=== PATIENT | male | born 1970 | race Caucasian/White ===

== ENCOUNTER 2022-10-10 11:01 | Emergency (ER) | payer SELFPAY ==
--- OUTSIDE RECORDS SUMMARY | 2022-10-10 11:04 | XMS REPORT | Continuity of Care Document ---
:[address] [facility] Address [address] [place] [address] [address] [place] [address] Care Team Providers Name Role Phone Colton Mcmahan DO Attending Clinician COLTON MCMAHAN Attending Clinician Unavailable Problems This patient has no known problems. Allergies, Adverse Reactions, Alerts Allergy Allergy Status Severity Reaction(s) Onset Inactive Treating Comm ents Source Name Type Date Date Clinician NO KNOWN Drug Active Univers ALLERGIE Class ity of S [facility] Social History Social Habit Start Date Stop Date Quantity Comments Source Exposure to Not sure [facility] SARS-CoV-2 (event) Medica l Branch Sex Assigned At [birth year] [facility] 00:00:00 00:00:00 Medical Branch Smoking Status Start Date Stop Date Source Unknown if ever smoked [facility] Medications Ordered Filled Start Stop Current Ordering Indication Dosage Frequency Signature Comments Components Source Medication Medication Date Date Medication? Clinician (SIG) Name Name naproxen Yes [id number] 550mg Take 1 Un amari sodium -26 tablet by ity of (ANAPROX 00:00: mouth 2 [place] DS) 550 mg 00 (two) Medical tablet times [place] daily with meals. methylPREDN Yes [id number] Take by Univers ISolone - mouth ity of (MEDROL, 00:00: SEE-INSTRU [place] as MICHAEL,) 4 mg 00 CTIONS. Medica l tablets follow Branch package directions methocarbam 2020- No [id number] 500mg Take 1 Univers oL 500 mg 02-25 tablet by ity of tablet 00:00: 04:59 mouth 3 [place] 00 :00 (three) Medical times Branch daily for 5 days. Vital Signs Vital Name Observation Time Observation Value Comments Source Systolic blood 2021-02-25 138 mm[Hg] University of pressure 16:37:00 [facility] Diastolic blood 2021-02-25 92 mm[Hg] University o f pressure 16:37:00 [facility] Heart rate 2021-02-25 85 /min [facility] 16:37:00 [facility] Body temperature 2021-02-25 36.44 Guillermina [facility] 16:37:00 [facility] Respiratory rate 2021-02-25 18 /min [facility] 16:37:00 [facility] Body weight 2021-02-25 86.183 kg Simultaneous [facility] 16:37:00 filing. User may [place] [facility] not have seen [place] previous data. Oxygen saturation 2021-02-25 97 /min [facility] in Arterial blood 16:37:00 [facility] by Pulse oximetry [place] Procedures Procedure Date / Time Performed Performing Clinician Sourc e XR FOOT <3 VW LEFT 2021-02-25 18:06:41 Colton Mcmahan y [facility] XR ANKLE <3 VW LEFT 2021-02-25 16:57:33 Colton Mcmahan ty [facility] Encounters Start End Encounter Admission Attending Care Care Encounter Source Date/Time Date/Time Type Type Clinicians Facility Department ID 2021-02-25 2021-02-25 Emergency ALBARO Mcmahan [id number] Univers 11:39:00 13:46:00 Colton Argueta [id number] i [facility] [id number] [facility] [id number] [facility] 084 Branch 2021-02-25 2021-02-25 Emergency X ALBARO MCMAHAN ERT [id number] Univers 11:39:00 11:39:00 COLTON rodriguez [facility] Results Test Description Test Time Test Comments Results Result Sour e Comments XR FOOT <3 VW 2021-02-01 HISTORY: ?Pain. Univer sity of LEFT [address] [facility] 18:13:57 avulsion. FINDINGS: Branc h AP, lateral, oblique views of left foot showed small corticalfracture along the lateral surface of calcaneum, visible only in AP view.No other acute fracture or dislocation detected. CONCLUSIONS: Minimally cortical fracture along the lateralsurface of calcaneum close to calcaneocuboid joint. [facility], Radiant Results [facility] User - 02/25/2021 1:15 PM CDT HISTORY: Pain. Possible [place] avulsion.FINDINGS: AP, lateral, oblique views of left foot showed small corticalfracture along the lateral surface of calcaneum, visible only in AP view.No other acute fracture or dislocation detected.CONCLUSIONS: Minimally cortical fracture along the lateralsurface of calcaneum close to calcaneocuboid joint. XR ANKLE <3 VW 2021-02-01 Questionable lateral University of LEFT 6 tarsal avulsion which [place] as Medical 17:01:07 may be further Branch characterizedwith foot radiographs with no other osseous abnormality. Posttraumatic soft tissue swelling. EXAM: XR ANKLE <3 VW LEFT HISTORY: pain with WB COMPARISON: None FINDINGS: Imaging of the ankle demonstrates maintenance of alignment. Joint spacesare preserved. Swelling surrounds the anterior and lateral ankle jointline. A Stieda process is present. Mild cortical irregularity is seen overthe lateral tarsal bones on the standard AP projection of the ankle only. [facility], Radiant Results [facility] User - 02/25/2021 12:02 PM CDT EXAM:XR ANKLE <3 VW LEFTHISTORY:pain with WB COMPARISON:NoneFINDIN GS: Imaging of the ankle demonstrates maintenance of alignment. Joint spacesare preserved. Swelling surrounds the anterior and lateral ankle jointline. A Stieda process is present. Mild cortical irregularity is seen overthe lateral tarsal bones on the standard AP projection of the ankle only.IMPRESSIONQuesti onable lateral tarsal avulsion which may be further characterizedwith foot radiographs with no other osseous abnormality.Posttraum atic soft tissue swelling.
[2022-10-10 13:15] LABS: SARS-COV-2 RT PCR NEGATIVE (NEGATIVE)
--- NOTE | 2022-10-10 13:18 | EDPHYS ---
Physician Documentation [facility] Name: Madi Kelly Age: 52 yrs Sex: Male : 1970 Arrival Date: 10/10/2022 Time: 11:04 Bed 12 Private MD: ED Physician Rm Flores HPI: 10/10 11:30 This 52 yrs old Male presents to ER via Ambulatory with complaints of Flu Symptoms. jmm 11:30 The patient or guardian reports cough. Onset: The symptoms/episode began/occurred jmm gradually, 2 week(s) ago. Modifying factors: The symptoms are alleviated by nothing. the symptoms are aggravated by nothing. Associated signs and symptoms: Pertinent positives: sore throat. The patient has experienced similar episodes in the past. Historical: - Allergies: 11:10 Naproxen Sodium; hb - Home Meds: 11:10 None [Active]; hb - PMHx: 11:10 None; hb - PSHx: 11:10 Tonsillectomy; hb - Immunization history:: Adult Immunizations up to date. - Social history:: Smoking status: Patient reports the use of cigarette tobacco products, smokes one pack cigarettes per day. ROS: 11:30 Constitutional: Negative for fever, chills, and weight loss, Cardiovascular: Negative jmm for chest pain, palpitations, and edema. 11:30 ENT: Positive for sinus congestion, sore throat. 11:30 Respiratory: Positive for cough. 11:30 All other systems are negative. Exam: 11:30 Constitutional: This is a well developed, well nourished patient who is awake, alert, jmm and in no acute distress. Head/Face: atraumatic. Eyes: EOMI, no conjunctival erythema appreciated ENT: Moist Mucus Membranes Neck: Trachea midline, Supple Chest/axilla: Normal chest wall appearance and motion. Cardiovascular: Regular rate and rhythm. No edema appreciated Respiratory: Normal respirations, no respiratory distress appreciated Abdomen/GI: Non distended Back: Normal ROM Skin: General appearance color normal MS/ Extremity: Moves all extremities, no obvious deformities appreciated, no edema noted to the lower extremities Neuro: Awake and alert Psych: Behavior is normal, Mood is normal, Patient is cooperative and pleasant Vital Signs: 11:09 BP 135 / 90; Pulse 83; Resp 16; Temp 98.9; Pulse Ox 100% on R/A; Weight 79.38 kg; hb Height 5 ft. 10 in. (177.80 cm); Pain 5/10; 11:09 Body Mass Index 25.11 (79.38 kg, 177.80 cm) hb MDM: 11:36 Patient medically screened. [facility] 13:17 Data reviewed: vital signs, nurses notes. Counseling: I had a detailed discussion with [facility] the patient and/or guardian regarding: the historical points, exam findings, and any diagnostic results supporting the discharge/admit diagnosis, lab results, the need for outpatient follow up, to return to the emergency department if symptoms worsen or persist or if there are any questions or concerns that arise at home. 10/10 11:29 Order name: COVID-19/FLU A+B; Complete Time: 13:17 [facility] 10/10 11:29 Order name: Strep; Complete Time: 12:57 [facility] 10/10 12:58 Order name: Throat Culture EDMS Administered Medications: No medications were administered Disposition: 15:11 Co-signature as Attending Physician, Rm Flores MD. rn Disposition Summary: 10/10/22 13:18 Discharge Ordered Location: Home [facility] Condition: Stable [facility] Diagnosis - Cough m - Acute pharyngitis, unspecified [facility] Followup: [facility] - With: Private Physician - When: 2 - 3 days - Reason: Recheck today's complaints, Continuance of care, Re-evaluation by your physician Discharge Instructions: - Discharge Summary Sheet [facility] - Pharyngitis jm - Cough, Adult [facility] Forms: - Medication Reconciliation Form [facility] - Thank You Letter [facility] - Antibiotic Education [facility] - Prescription Opioid Use [facility] Prescriptions: - cefdinir 300 mg Oral capsule - take 1 capsule by ORAL route every 12 hours for 10 days; 20 capsule; Refills: [facility] 0, Product Selection Permitted Signatures: Dispatcher [employer] EDMS Chester Schwarz PA PA jmm Nieto, Roman, MD MD rn Baxter, Heather, RN RN hb Corrections: (The following items were deleted from the chart) 11:11 11:10 Allergies: No Known Allergies; hb hb
--- NOTE | 2022-10-10 13:18 | ER ---
Nurse's Notes [facility] Name: Madi Kelly Age: 52 yrs Sex: Male : 1970 Arrival Date: 10/10/2022 Time: 11:04 Bed 12 Private MD: Diagnosis: Cough;Acute pharyngitis, unspecified Presentation: 10/10 11:09 Chief complaint: Body aches, sore throat, malaise, and decreased appetite x 2 weeks. hb Coronavirus screen: Client presents with at least one sign or symptom that may indicate coronavirus-19. Standard/surgical mask placed on the client. Provider contacted for isolation considerations. Ebola Screen: No symptoms or risks identified at this time. Initial Sepsis Screen: Does the patient meet any 2 criteria? No. Patient's initial sepsis screen is negative. Does the patient have a suspected source of infection? No. Patient's initial sepsis screen is negative. Risk Assessment: Do you want to hurt yourself or someone else? Patient reports no desire to harm self or others. Onset of symptoms was September 2023. 11:09 Method Of Arrival: Ambulatory hb 11:09 Acuity: BERNIE 4 hb Triage Assessment: 11:10 General: Appears in no apparent distress. Behavior is calm, cooperative. Pain: Pain hb currently is 5 out of 10 on a pain scale. Neuro: Level of Consciousness is awake, alert, obeys commands, Oriented to person, place, time, situation. Cardiovascular: Patient's skin is warm and dry. Respiratory: Respiratory effort is even, unlabored, Respiratory pattern is regular, symmetrical. Historical: - Allergies: 11:10 Naproxen Sodium; hb - Home Meds: 11:10 None [Active]; hb - PMHx: 11:10 None; hb - PSHx: 11:10 Tonsillectomy; hb - Immunization history:: Adult Immunizations up to date. - Social history:: Smoking status: Patient reports the use of cigarette tobacco products, smokes one pack cigarettes per day. Screenin:30 [facility] ED Fall Risk Assessment (Adult) Score/Fall Risk Level 0 - 2 = Low Risk hb Oriented to surroundings, Maintained a safe environment. Abuse screen: Denies threats or abuse. Denies injuries from another. Nutritional screening: No deficits noted. Tuberculosis screening: No symptoms or risk factors identified. Assessment: 11:15 General: See triage assessment. hb 13:27 Reassessment: Patient appears in no apparent distress at this time. Patient and/or hb family updated on plan of care and expected duration. Pain level reassessed. Patient is alert, oriented x 3, equal unlabored respirations, skin warm/dry/pink. Vital Signs: 11:09 BP 135 / 90; Pulse 83; Resp 16; Temp 98.9; Pulse Ox 100% on R/A; Weight 79.38 kg; hb Height 5 ft. 10 in. (177.80 cm); Pain 5/10; 11:09 Body Mass Index 25.11 (79.38 kg, 177.80 cm) hb ED Course: 11:04 Patient arrived in ED. am2 11:08 Chester Schwarz PA is PHCP. [facility] 11:08 Rm Flores MD is Attending Physician. [facility] 11:10 Triage completed. hb 11:10 Arm band placed on. hb 11:30 Patient has correct armband on for positive identification. hb 11:38 COVID swab sent to lab. Flu and/or RSV swab sent to lab. Strep swab sent to lab. tm3 13:28 No provider procedures requiring assistance completed. Patient did not have IV access hb during this emergency room visit. Administered Medications: No medications were administered Medication: 13:27 VIS not applicable for this client. hb Outcome: 13:18 Discharge ordered by . [facility] 13:28 Discharged to home ambulatory. hb 13:28 Condition: stable 13:28 Discharge instructions given to patient, Instructed on discharge instructions, follow up and referral plans. medication usage, Demonstrated understanding of instructions, follow-up care, medications, Prescriptions given X 1. 13:28 Patient left the ED. hb Signatures: Fredy Daniel tm3 Chester Schwarz PA PA jmm Baxter, Heather, RN RN hb Carola Joseph am2 Corrections: (The following items were deleted from the chart) 11:11 11:10 Allergies: No Known Allergies; hb hb
[2022-10-10 13:33] VITALS: BP 135/90; TEMP 98.9; O2SAT 100
== END 2022-10-10 13:28 | disposition home or self-care (01) ==
LOC: ER 11:01
DX: R05.9 Cough, unspecified (principal); J02.9 Acute pharyngitis, unspecified; F17.210 Nicotine dependence, cigarettes, uncomplicated; Z20.822 Contact with and (suspected) exposure to COVID-19; Z88.5 Allergy status to narcotic agent
CPT/HCPCS: 0240U; 87070; 87081; 99283

== ENCOUNTER 2023-01-28 10:56 | Emergency (ER) | payer SELFPAY ==
--- OUTSIDE RECORDS SUMMARY | 2023-01-28 11:03 | XMS REPORT | Continuity of Care Document ---
:1970 Author Organization [facility] t Address [address] [facility]. [address] [place] [address] Care Team Providers Name Role Phone Colton Mcmahan DO Attending Clinician COLTON MCMAHAN Attending Clinician Unavailable Problems This patient has no known problems. Allergies, Adverse Reactions, Alerts Allergy Allergy Status Severity Reaction(s) Onset Inactive Treating Comm ents Source Name Type Date Date Clinician NO KNOWN Drug Active Univers ALLERGIE Class ity of S [facility] Social History Social Habit Start Date Stop Date Quantity Comments Source Exposure to Not sure [facility] SARS-CoV-2 (event) Medica l Branch Sex Assigned At [birth year] [facility] 00:00:00 00:00:00 Medical [place] Smoking Status Start Date Stop Date Source Unknown if ever smoked [facility] Medications Ordered Filled Start Stop Current Ordering Indication Dosage Frequency Signature Comments Components Source Medication Medication Date Date Medication? Clinician (SIG) Name Name naproxen Yes [id number] 550mg Take 1 Un amari sodium 5-26 tablet by ity of (ANAPROX 00:00: mouth 2 [place] DS) 550 mg 00 (two) Medical tablet times Branch daily with meals. methylPREDN Yes [id number] Take by Univers ISolone 5-26 mouth ity of (MEDROL, 00:00: SEE-INSTRU [place] as MICHAEL,) 4 mg 00 CTIONS. Medica l tablets follow Branch package directions methocarbam 2020- No [id number] 500mg Take 1 Univers oL 500 mg 5-26 06-01 tablet by ity of tablet 00:00: 04:59 mouth 3 [place] 00 :00 (three) Medical times Branch daily for 5 days. Vital Signs Vital Name Observation Time Observation Value Comments Source Systolic blood 2021-02-25 138 mm[Hg] [place] of pressure 16:37:00 [facility] Diastolic blood 2021-02-25 92 mm[Hg] University o f pressure 16:37:00 [facility] Heart rate 2021-02-25 85 /min [facility] 16:37:00 [facility] Body temperature 2021-02-25 36.44 Guillermina [facility] 16:37:00 [facility] Respiratory rate 2021-02-25 18 /min [facility] 16:37:00 [facility] Body weight 2021-02-25 86.183 kg Simultaneous [facility] 16:37:00 filing. User may [place] [facility] not have seen [place] previous data. Oxygen saturation 2021-02-25 97 /min [facility] in Arterial blood 16:37:00 [facility] by Pulse oximetry [place] Procedures Procedure Date / Time Performed Performing Clinician Sour e XR FOOT <3 VW LEFT 2021-02-25 18:06:41 Colton Mcmahan y [facility] XR ANKLE <3 VW LEFT 2021-02-25 16:57:33 Colton Mcmahan [facility] Encounters Start End Encounter Admission Attending Care Care Encounter Source Date/Time Date/Time Type Type Clinicians Facility Department ID 2021-02-25 2021-02-25 Emergency ALBARO Mcmahan [id number] [facility] 11:39:00 13:46:00 Colton Argueta [id number] i [facility] [id number] [facility] [id number] [facility] 084 Branch 2021-02-25 2021-02-25 Emergency X ALBARO MCMAHAN ERT [id number] Univers 11:39:00 11:39:00 COLTON rodriguez [facility] Results Test Description Test Time Test Comments Results Result Sour e Comments XR FOOT <3 VW 2021-02-01 HISTORY: ?Pain. Univer sity of LEFT 6 Possible talus [facility] 18:13:57 avulsion. FINDINGS: Bran h AP, lateral, oblique views of left foot showed small corticalfracture along the lateral surface of calcaneum, visible only in AP view.No other acute fracture or dislocation detected. CONCLUSIONS: Minimally cortical fracture along the lateralsurface of calcaneum close to calcaneocuboid joint. [facility], Rad[facility] User - 02/25/2021 1:15 PM CDT HISTORY: [...] standard AP projection of the ankle only. [facility], Radiant Results [facility] User - 02/25/2021 12:02 PM CDT EXAM:XR [...]
[2023-01-28] MEDS ORDERED: ASPIRIN 81 MG CHEWABLE TABLET ONE (11:25)
[2023-01-28 11:51] LABS: Protime INR 0.94
[2023-01-28] MEDS ORDERED: MORPHINE 2 MG/ML SYR ONE (11:51)
[2023-01-28 12:09] LABS: Albumin 3.7 g/dL (3.4-5.0); Bilirubin Direct 0.1 mg/dL (0-0.2); Bilirubin Total 0.3 mg/dL (0.2-1.0); Magnesium 2.1 mg/dL (1.6-2.4); Potassium 3.9 mEq/L (3.5-5.1); Troponin High Sensitivity 3.5 pg/mL (<58.9)
[2023-01-28 12:30] LABS: Absolute Lymphocytes (CBC) 2.3 K/uL (0.7-4.9); Hematocrit 38.6 % (39.6-49.0); Lymphocytes % 27.9 % (15.3-44.8); MCV 92.4 fL (80-100); MPV 8.5 fL (7.6-11.3); RBC Red Blood Cell Count 4.17 M/uL (4.33-5.43)
[2023-01-28] MEDS ORDERED: MORPHINE 4 MG/ML SYR ONE (12:30)
[2023-01-28 12:47] LABS: Troponin High Sensitivity 3.4 pg/mL (<58.9)
--- NOTE | 2023-01-28 14:21 | RAD REPORT ---
EXAM DESCRIPTION: CT - Chest For Pe Angio - 01/28/2023 1:58 pm CLINICAL HISTORY: Chest pain COMPARISON: None. TECHNIQUE: Dynamically enhanced axial 3 mm thick images of the chest were obtained during administra tion of 100 mL Isovue 370 IV contrast. Coronal and oblique reconstruction images were generated and r eviewed. Exam utilizes a protocol for optimal evaluation of pulmonary arterial tree. Maximum intensity projections 3D imaging was utilized All CT scans are performed using dose optimization technique as appropriate and may include automated exposure control or mA/KV adjustment according to patient size. FINDINGS: A pulmonary embolus is not seen. A thoracic aortic aneurysm is not noted. A pleural effusion is not seen. A pericardial effusion is not seen. Mild to moderate paraseptal emphysema. Multiple hepatic lesions. Almost all are too small to characterize. They vary in size from a few mill imeters to 14 millimeters. IMPRESSION: Negative for a pulmonary embolism. Mild to moderate COPD Hepatic lesions. Ultrasound recommended
--- NOTE | 2023-01-28 15:24 | EDPHYS ---
Physician Documentation [facility] Name: Madi Kelly Age: 52 yrs Sex: Male : 1970 Arrival Date: 01/28/2023 Time: 10:56 Bed 14 Private MD: ED Physician Darnell Ahn HPI: 01/28 11:13 This 52 yrs old Male presents to ER via Ambulatory with complaints of Chest Pain, Back snw Pain. 11:13 The patient or guardian reports chest pain that is located primarily in the anterior snw chest wall, left. Onset: suddenly, just prior to arrival, and became persistent. The pain radiates to left back. The chest pain is described as a pressure. Duration: The patient or guardian reports a single episode. Severity of pain: At its worst the pain was moderate. The patient has not experienced similar symptoms in the past. The patient has not recently seen a physician, and does not have an established primary care provider. smokes 1 PPD. Historical: - Allergies: 11:08 Naproxen Sodium; ld1 - PMHx: 11:08 None; ld1 - PSHx: 11:08 Tonsillectomy; ld1 - Immunization history:: Adult Immunizations up to date, Client reports receiving the 2nd dose of the Covid vaccine. - Social history:: Smoking status: Patient denies any tobacco usage or history of. Patient/guardian denies using alcohol. ROS: 11:12 Constitutional: Negative for fever, chills, and weight loss, Eyes: Negative for injury, snw pain, redness, and discharge, ENT: Negative for injury, pain, and discharge, Neck: Negative for injury, pain, and swelling. 11:12 Respiratory: Negative for shortness of breath, cough, wheezing, and pleuritic chest pain, Abdomen/GI: Negative for abdominal pain, nausea, vomiting, diarrhea, and constipation, Back: Negative for injury and pain, : Negative for injury, bleeding, discharge, and swelling, MS/Extremity: Negative for injury and deformity, Skin: Negative for injury, rash, and discoloration. 11:12 Psych: Negative for depression, anxiety, suicide ideation, homicidal ideation, and hallucinations. 11:12 Cardiovascular: Positive for chest pain, of the left clavicle, anterior aspect of left upper chest and left lateral posterior chest. 11:12 Neuro: Positive for lightheadedness. Exam: 11:11 Constitutional: This is a well developed, well nourished patient who is awake, alert, snw and in no acute distress. Head/Face: Normocephalic, atraumatic. Eyes: Pupils equal round and reactive to light, extra-ocular motions intact. Lids and lashes normal. Conjunctiva and sclera are non-icteric and not injected. Cornea within normal limits. Periorbital areas with no swelling, redness, or edema. ENT: Nares patent. No nasal discharge, no septal abnormalities noted. Tympanic membranes are normal and external auditory canals are clear. Oropharynx with no redness, swelling, or masses, exudates, or evidence of obstruction, uvula midline. Mucous membranes moist. Neck: Trachea midline, no thyromegaly or masses palpated, and no cervical lymphadenopathy. Supple, full range of motion without nuchal rigidity, or vertebral point tenderness. No Meningismus. Chest/axilla: Normal chest wall appearance and motion. Nontender with no deformity. No lesions are appreciated. Cardiovascular: Regular rate and rhythm with a normal S1 and S2. No gallops, murmurs, or rubs. Normal PMI, no JVD. No pulse deficits. Respiratory: Lungs have equal breath sounds bilaterally, clear to auscultation and percussion. No rales, rhonchi or wheezes noted. No increased work of breathing, no retractions or nasal flaring. Abdomen/GI: Soft, non-tender, with normal bowel sounds. No distension or tympany. No guarding or rebound. No evidence of tenderness throughout. Back: No spinal tenderness. No costovertebral tenderness. Full range of motion. Skin: Warm, dry with normal turgor. Normal color with no rashes, no lesions, and no evidence of cellulitis. MS/ Extremity: Pulses equal, no cyanosis. Neurovascular intact. Full, normal range of motion. Neuro: Awake and alert, GCS 15, oriented to person, place, time, and situation. Cranial nerves II-XII grossly intact. Motor strength 5/5 in all extremities. Sensory grossly intact. Cerebellar exam normal. Normal gait. 11:11 Psych: Behavior/mood is pleasant, cooperative, anxious, Oriented to person, place, only. Vital Signs: 11:07 BP 129 / 90; Pulse 85; Resp 20; Temp 99.7(O); Pulse Ox 98% on R/A; Weight 79.38 kg; ld1 Height 5 ft. 9 in. ; Pain 8/10; 12:00 BP 125 / 76; Pulse 77; Resp 18; Pulse Ox 97% on R/A; eh3 13:00 BP 130 / 71; Pulse 70; Resp 17; Pulse Ox 96% on R/A; eh3 14:00 BP 130 / 71; Pulse 69; Resp 17; Pulse Ox 97% on R/A; eh3 11:07 Body Mass Index 25.84 (79.38 kg, 175.26 cm) ld1 11:07 Pain Scale: Adult ld1 MDM: 11:22 Patient medically screened. snw 15:26 HEART Score: History: Slightly Suspicious (0), ECG: Non specific repolarization snw disturbance / LBTB / PM (1), Age: > 45 and < 65 years (1), Risk Factors: No Risk Factors Known (0), Troponin: < or = 1 x Normal Limit (0), Total Score = 2. The patient was given aspirin in the Emergency Department. Data reviewed: vital signs, nurses notes, lab test result(s), EKG, radiologic studies. I considered the following discharge prescriptions or medication management in the emergency department Medications were administered in the Emergency Department. See MAR. Care significantly affected by the following Social Determinants of Health: no PCP. Counseling: I had a detailed discussion with the patient and/or guardian regarding: the historical points, exam findings, and any diagnostic results supporting the discharge/admit diagnosis, lab results, radiology results, the need for outpatient follow up, for definitive care, to return to the emergency department if symptoms worsen or persist or if there are any questions or concerns that arise at home, smoking cessation. Special discussion: Based on the history and exam findings, there is no indication for further emergent testing or inpatient evaluation. I discussed with the patient/guardian the need to see the primary care provider for further evaluation of the symptoms. I discussed with the patient/guardian the need to see the industrial services worker for further evaluation of the symptoms. 01/28 11:10 Order name: Basic Metabolic Panel; Complete Time: 12:10 snw 01/28 11:10 Order name: CBC with Diff; Complete Time: 12:53 snw 01/28 11:10 Order name: LFT's; Complete Time: 12:10 snw 01/28 11:10 Order name: Magnesium; Complete Time: 12:10 w 01/28 11:10 Order name: NT PRO-BNP; Complete Time: 12:10 w 01/28 11:10 Order name: PT-INR; Complete Time: 11:55 snw 01/28 11:10 Order name: Troponin HS; Complete Time: 12:10 snw 01/28 12:10 Order name: Troponin High Sensitivity; Complete Time: 12:53 w 01/28 12:10 Order name: CPK; Complete Time: 12:53 w 01/28 13:45 Order name: CT Chest For PE Angio; Complete Time: 14:32 snw 01/28 14:35 Order name: US Liver Only 01/28 12:10 Order name: EKG; Complete Time: 12:10 w 01/28 11:05 Order name: Cardiac monitoring; Complete Time: 11:18 cm9 01/28 11:05 Order name: EKG - Nurse/Tech; Complete Time: 11:18 cm9 01/28 11:05 Order name: IV Saline Lock; Complete Time: 11:55 cm9 01/28 11:05 Order name: Labs collected and sent; Complete Time: 11:36 cm9 01/28 11:05 Order name: O2 Per Protocol; Complete Time: 11:18 cm9 01/28 11:05 Order name: O2 Sat Monitoring; Complete Time: 11:18 cm9 01/28 11:56 Order name: Labs - recollect needed: recollect green and purple hemolyzed; Complete eb Time: 12:23 01/28 12:10 Order name: EKG - Nurse/Tech; Complete Time: 12:23 snw EC:15 Rate is 75 beats/min. Rhythm is regular. QRS [place] is Normal. UT interval is normal. QRS snw interval is normal. QT interval is normal. Clinical impression: NSR w/ Non-specific ST/T Changes. 12:30 Rate is 74 beats/min. Rhythm is regular. QRS [place] is Normal. UT interval is normal. QRS snw interval is normal. Clinical impression: NSR w/ Non-specific ST/T Changes. Administered Medications: 11:20 Drug: Aspirin PO Chewable Tablet 324 mg Route: PO; eh3 11:55 Follow up: Response: No adverse reaction 3 11:45 Drug: morphine IVP or IV 2 mg Route: IVP; Infused Over: 4 mins; Site: right upper arm; eh3 13:00 Follow up: Response: No adverse reaction 3 12:30 Drug: morphine IVP or IV 4 mg Route: IVP; Infused Over: 4 mins; Site: right upper arm; eh3 14:00 Follow up: Response: No adverse reaction 3 15:25 Drug: Ketorolac IVP 15 mg Route: IVP; Site: right upper arm; eh3 15:30 Follow up: Response: Medication administered at discharge. 3 Disposition: 12:09 Co-signature as Attending Physician, Darnell Ahn DO I was immediately available on-site ms3 in the Emergency Department for consultation in the care of the patient. Disposition Summary: 01/28/23 15:24 Discharge Ordered Location: Home snw Condition: Stable snw Diagnosis - Costochondritis snw Followup: snw - With: Emergency Department - When: As needed - Reason: Worsening of condition Followup: snw - With: Private Physician - When: 2 - 3 days - Reason: Recheck today's complaints, Continuance of care, Re-evaluation by your physician Discharge Instructions: - Discharge Summary Sheet snw - Chest Wall Pain snw - Costochondritis snw - Form - COPD Action Plan snw - COPD and Physical Activity snw Forms: - Medication Reconciliation Form snw - Thank You Letter snw - Antibiotic Education snw - Prescription Opioid Use snw Prescriptions: - Augmentin 875-125 mg Oral Tablet - take 1 tablet by ORAL route every 12 hours for 10 days; 20 tablet; Refills: 0, snw Product Selection Permitted - Prednisone 20 mg Oral Tablet - take 2 tablets by ORAL route once daily for 5 days; 10 tablet; Refills: 0, snw Product Selection Permitted - Pepcid 20 mg Oral Tablet - take 1 tablet by ORAL route once daily; 20 tablet; Refills: 0, Product snw Selection Permitted Signatures: Dispatcher [employer] Kaitlyn Hilario FNP-C FNP-Csnw Krysten Fernandes Marcus, DO DO ms3 Phyllis Ahn RN RN ld1 Ashley Keane RN RN eh3 Ayaan, Fabiola, RN RN cm9
--- NOTE | 2023-01-28 15:24 | ER ---
Nurse's Notes [facility] Name: Madi Kelly Age: 52 yrs Sex: Male : 1970 Arrival Date: 01/28/2023 Time: 10:56 Bed 14 Private MD: Diagnosis: Costochondritis Presentation: 01/28 11:07 Chief complaint: Patient states: Chest pain - lightheadedness, rash. Coronavirus ld1 screen: At this time, the client does not indicate any symptoms associated with coronavirus-19. Ebola Screen: No symptoms or risks identified at this time. Initial Sepsis Screen: Does the patient meet any 2 criteria? No. Patient's initial sepsis screen is negative. Does the patient have a suspected source of infection? No. Patient's initial sepsis screen is negative. Risk Assessment: Do you want to hurt yourself or someone else? Patient reports no desire to harm self or others. Onset of symptoms was January 28, 2023. 11:07 Method Of Arrival: Ambulatory ld1 11:07 Acuity: BERNIE 3 ld1 Triage Assessment: 11:08 General: Appears in no apparent distress. comfortable, Behavior is calm, cooperative, ld1 appropriate for age. Pain: Complains of pain in chest Pain does not radiate. Pain currently is 8 out of 10 on a pain scale. Quality of pain is described as throbbing. EENT: No signs and/or symptoms were reported regarding the EENT system. Neuro: Level of Consciousness is awake, alert, obeys commands, Oriented to person, place, time, situation. Cardiovascular: Reports chest pain, Capillary refill < 3 seconds Patient's skin is warm and dry. Respiratory: Airway is patent Respiratory effort is even, unlabored. GI: Abdomen is flat, non-distended. Historical: - Allergies: 11:08 Naproxen Sodium; ld1 - PMHx: 11:08 None; ld1 - PSHx: 11:08 Tonsillectomy; ld1 - Immunization history:: Adult Immunizations up to date, Client reports receiving the 2nd dose of the Covid vaccine. - Social history:: Smoking status: Patient denies any tobacco usage or history of. Patient/guardian denies using alcohol. Screenin:20 [facility] ED Fall Risk Assessment (Adult) Score/Fall Risk Level 0 - 2 = Low Risk. Abuse eh3 screen: Denies threats or abuse. Denies injuries from another. Nutritional screening: No deficits noted. Tuberculosis screening: No symptoms or risk factors identified. Assessment: 11:20 General: Appears in no apparent distress. uncomfortable, Behavior is calm, cooperative, eh3 appropriate for age. Pain: Complains of pain in anterior aspect of left upper chest Pain radiates to back and anterior aspect of left shoulder. Pain: Pain currently is 8 out of 10 on a pain scale. Quality of pain is described as sharp, Pain began 2 hours ago. Is continuous. Neuro: Level of Consciousness is awake, alert, obeys commands, Oriented to person, place, time, situation. Cardiovascular: Capillary refill < 3 seconds Patient's skin is warm and dry. Rhythm is sinus rhythm. Respiratory: Airway is patent Respiratory effort is even, unlabored, Respiratory pattern is regular, symmetrical. GI: Abdomen is round non-distended. : No signs and/or symptoms were reported regarding the genitourinary system. EENT: No signs and/or symptoms were reported regarding the EENT system. Derm: Skin is intact, is healthy with good turgor, Skin is pink, warm \T\ dry. Musculoskeletal: Circulation, motion, and sensation intact. 12:00 Reassessment: Patient appears in no apparent distress at this time. Patient and/or eh3 family updated on plan of care and expected duration. Pain level reassessed. Patient is alert, oriented x 3, equal unlabored respirations, skin warm/dry/pink. 13:00 Reassessment: Patient appears in no apparent distress at this time. Patient and/or eh3 family updated on plan of care and expected duration. Pain level reassessed. Patient is alert, oriented x 3, equal unlabored respirations, skin warm/dry/pink. 14:00 Reassessment: Patient appears in no apparent distress at this time. Patient and/or eh3 family updated on plan of care and expected duration. Pain level reassessed. Patient is alert, oriented x 3, equal unlabored respirations, skin warm/dry/pink. Vital Signs: 11:07 BP 129 / 90; Pulse 85; Resp 20; Temp 99.7(O); Pulse Ox 98% on R/A; Weight 79.38 kg; ld1 Height 5 ft. 9 in. ; Pain 8/10; 12:00 BP 125 / 76; Pulse 77; Resp 18; Pulse Ox 97% on R/A; eh3 13:00 BP 130 / 71; Pulse 70; Resp 17; Pulse Ox 96% on R/A; eh3 14:00 BP 130 / 71; Pulse 69; Resp 17; Pulse Ox 97% on R/A; eh3 11:07 Body Mass Index 25.84 (79.38 kg, 175.26 cm) ld1 11:07 Pain Scale: Adult ld1 ED Course: 11:00 Patient arrived in ED. ts1 11:01 [facility] Bell [facility]C [facility] snw 11:01 Darnell Ahn DO is Attending Physician. snw 11:08 Triage completed. ld1 11:08 Arm band placed on right wrist. ld1 11:18 Ashley Keane, RN is Primary Nurse. eh3 11:20 Patient has correct armband on for positive identification. Placed in gown. Bed in low eh3 position. Call light in reach. Side rails up X2. Client placed on continuous cardiac and pulse oximetry monitoring. NIBP monitoring applied. Door closed. Noise minimized. Warm blanket given. 11:20 Patient maintains SpO2 saturation greater than 95% on room air. eh3 11:35 Basic Metabolic Panel Sent. mm9 11:35 CBC with Diff Sent. mm9 11:35 LFT's Sent. mm9 11:35 Magnesium Sent. mm9 11:36 NT PRO-BNP Sent. mm9 11:36 PT-INR Sent. mm9 11:36 Troponin HS Sent. mm9 11:36 EKG done, by ED staff, reviewed by Kaitlyn JAMES. Missed attempt(s): 20 gauge in mm9 right forearm. 11:45 Inserted saline lock: 20 gauge in right upper arm, using aseptic technique. eh3 14:00 CT Chest For PE Angio In Process Unspecified. EDMS 15:00 US Liver Only In Process Unspecified. EDMS 15:50 No provider procedures requiring assistance completed. mb9 15:50 IV discontinued, intact, bleeding controlled, No redness/swelling at site. Pressure mb9 dressing applied. Administered Medications: 11:20 Drug: Aspirin PO Chewable Tablet 324 mg Route: PO; eh3 11:55 Follow up: Response: No adverse reaction eh3 11:45 Drug: morphine IVP or IV 2 mg Route: IVP; Infused Over: 4 mins; Site: right upper arm; eh3 13:00 Follow up: Response: No adverse reaction eh3 12:30 Drug: morphine IVP or IV 4 mg Route: IVP; Infused Over: 4 mins; Site: right upper arm; eh3 14:00 Follow up: Response: No adverse reaction eh3 15:25 Drug: Ketorolac IVP 15 mg Route: IVP; Site: right upper arm; eh3 15:30 Follow up: Response: Medication administered at discharge. eh3 Medication: 15:30 VIS not applicable for this client. eh3 Outcome: 15:24 Discharge ordered by . jose 15:49 Discharged to home ambulatory. mb9 15:49 Condition: stable 15:49 Discharge instructions given to patient, Instructed on discharge instructions, follow up and referral plans. Demonstrated understanding of instructions, follow-up care, medications, Prescriptions given X 3. 15:50 Patient left the ED. mb9 Signatures: Dispatcher [employer] EDMS Kaitlyn Bell, DENTAL LABORATORY ASSISTANT-C DENTAL LABORATORY ASSISTANT-Csnw Phyllis Ahn, RN RN ld1 Ashley Keane RN RN eh3 Marie Escalante mm9 Yudi Antony RN RN mb9 rEicka Cabrera PAS PAS ts1
[2023-01-28] MEDS ORDERED: KETOROLAC 30 MG/ML INJ ONE (15:27)
--- NOTE | 2023-01-28 15:53 | RAD REPORT ---
EXAM DESCRIPTION: US - Liver Only - 01/28/2023 2:58 pm CLINICAL HISTORY: Abdominal pain COMPARISON: CT chest January 28, 2023 FINDINGS: Multiple hepatic cysts are present. Largest 1.5 centimeters containing septation. Hepatopetal flow The spleen measures 9 centimeters. IMPRESSION: 1.5 centimeter complex hepatic cysts likely benign. Follow-up ultrasound in 6 months rec ommended Additional small hepatic cysts
[2023-01-28 16:17] VITALS: TEMP 99.7
[2023-01-28 16:28] VITALS: BP 130/71
[2023-01-28 16:29] VITALS: O2SAT 97
--- NOTE | 2023-01-29 15:21 | EKG ---
Test Date: 2023-01-28 Test Time: 11:15:57 Slunk Skinner: CHRIS MEASUREMENT RESULTS: Intervals: Rate: 75 CO: 168 QRSD: 96 QT: 372 QTc: 415 [employer]: P: 66 CO: 168 QRS: 78 T: 64 INTERPRETIVE STATEMENTS: Normal sinus rhythm Normal ECG No previous ECG available for comparison Electronically Signed On 01-29-23 15:20:27 CDT by Franco Bedoya
--- NOTE | 2023-01-31 12:44 | EKG ---
Test Date: 2023-01-28 Test Time: 12:28:21 [employer]: ALEISHA MEASUREMENT RESULTS: Intervals: Rate: 74 FL: 182 QRSD: 94 QT: 380 QTc: 421 [place]: P: 71 FL: 182 QRS: 77 T: 58 INTERPRETIVE STATEMENTS: Normal sinus rhythm Normal ECG Compared to ECG 01/28/2023 11:15:57 No significant changes Electronically Signed On 01-31-23 12:37:49 CDT by Jamin Deras
== END 2023-01-28 15:50 | disposition home or self-care (01) ==
LOC: ER 10:56
DX: M94.0 Chondrocostal junction syndrome [Tietze] (principal)
CPT/HCPCS: 36415; 71275; 76705; 80048; 80076; 82550; 83735; 83880; 84484; 85025; 85610; 93005; J2270; Q9967